=== PATIENT | female | born 2000 | race Asian ===

== ENCOUNTER 2020-06-07 23:22 | Inpatient (IN) ==
--- OUTSIDE RECORDS SUMMARY | 2020-06-07 23:25 | External Medical Summary | Continuity of Care Document ---
:2000 Author Name Kim Negrete, Provider Address Unavailable Unavailable , Care Team Providers Name Role Phone Unavailable Unavailable Unavailable Deedee Alexander M.D. Unavailable [email or web address] ESQUIVEL Unavailable Unavailable Unavailable Unavailable Unavailable Problems Allergic rhinitis (477.9) (J30.9) Allergic conjunctivitis (372.14) (H10.10) Idiopathic urticaria (708.1) (L50.1) Allergies and Adverse Reactions No Known Drug Allergies (Allergy) Medications [place] 24 Fe 1-20 MG-MCG(24) Oral Tablet , M.D. Refills: 0 Montelukast Sodium 10 MG Oral Tablet; TAKE 1 TABLET BY MOUTH EVERY DAY Caden Alexander Start: 29-Mar-2019 Quantity: 30 Refills: 11 Procedures Procedures not documented Immunizations Immunizations not documented Interventions Follow-ups/ReferralsFollow-up visit in 2 months; Done: 29 Mar 2019 Plan of Treatment Planned Observations Planned Goals not documented Results No Known Results Results not documented Encounters Appointment; Deedee Alexander M.D. 29-Mar-2019 14:20 Encounter Diagnosis: Problem not documented Appointment; Med [facility] Allergy, Testing Room 28-Mar-2019 10:30 Encounter Diagnosis: Problem not documented Appointment; Deedee Alexander M.D. 22-Mar-2019 15:00 Encounter Diagnosis: Problem not documented
[2020-06-07 23:57] LABS: Basophils # (auto) 0.03 K/uL (0-0.2); Basophils % (auto) 0.4 %; Eosinophils # (auto) 0.09 K/uL (0-0.5); Eosinophils % (auto) 1.1 %; Hematocrit (blood only) 45.4 % (37-47); Hemoglobin 15.8 g/dL (12.0-16.0); Immature Granulocytes # (auto) 0.02 K/uL (0.00-0.02); Immature Granulocytes % (auto) 0.3 %; Lymphocytes # (auto) 3.29 K/uL (1.2-3.4); Lymphocytes % (auto) 41.6 %; Mean Corpuscular Hgb Conc 34.8 g/dL (32-36); Mean Corpuscular Volume 89.2 fL (80-100); Mean Platelet Volume 9.3 fL (7.4-10.4); Monocytes # (auto) 0.38 K/uL (0.11-0.59); Monocytes % (auto) 4.8 %; Neutrophils # (auto) 4.09 K/uL (1.4-6.5); Neutrophils % (auto) 51.8 %; Platelet Count 346 K/uL (130-400); RDW Coefficient of Variation 12.6 % (11.5-14.5); RDW Standard Deviation 40.7 fL (36.4-46.3); Red Blood Count 5.09 M/uL (4.2-5.4)
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
[2020-06-08 00:27] LABS: Acetaminophen 25 ug/ml (10-30); Salicylate < 1.7 mg/dl (2.8-20)
[2020-06-08 01:02] LABS: Albumin Level 4.3 gm/dl (3.4-5.0); Bilirubin,Total 0.4 mg/dl (0.2-1); Calcium 8.7 mg/dl (8.5-10.1); Creatinine Clr Calc Pharmacy 69.8 ml/min; Est GFR (Non-African American) 84.5; Globulin 4.3 gm/dl (2.5-4.0); Thyroid Stimulating Hormone 0.742 uIu/ml (0.300-4.500); Total Protein 8.6 gm/dl (6.4-8.2)
[2020-06-08 03:06] LABS: Potassium 3.8 mmol/L (3.5-5.1)
[2020-06-08 03:10] LABS: Prothrombin Time 10.7 Seconds (9.0-12.0)
[2020-06-08 05:31] LABS: Appearance Urine Clear (Clear); Bilirubin Urine Negative (Negative); Blood Urine 3+ (Negative); Color Urine Yellow; Glucose Urine UA Negative (Negative); Ketones Urine 1+ (Negative); Leukocyte Esterase Urine Negative (Negative); Nitrite Urine Negative (Negative); Protein Urine Negative (Negative); Urobilinogen Urine Negative (Negative); pH Urine 6.5 (4.5-7.5)
[2020-06-08 05:45] LABS: Bacteria Urine Negative (Negative); Mucus Urine Present (None Prsent)
[2020-06-08 05:55] LABS: Amphetamines+Metham, Urine Neg (Neg); Barbiturates, Urine Neg (Neg); Benzodiazepine, Urine Neg (Neg); Cocaine, Urine Neg (Neg); MDMA (Ecstacy), Urine Neg (Neg); Methadone, Urine Neg (Neg); Opiate, Urine Neg (Neg); Phencyclidine, Urine Neg (Neg)
[2020-06-08 06:00] LABS: Pregnancy Test, Urine Negative (Negative)
[2020-06-08] MEDS ORDERED: ACETAMINOPHEN 325 MG TAB PO PRN (07:15)
[2020-06-08] MEDS ORDERED: ALUMINUM/MAGNESIUM SUSP 30 ML UDC PO PRN (07:15)
[2020-06-08] MEDS ORDERED: SODIUM CHLORIDE 0.65% NA SOLN 45 ML (OCEAN) PRN (07:15)
[2020-06-08] MEDS ORDERED: MAGNESIUM HYDROXIDE SUSP 30 ML UDC PO PRN (07:15)
[2020-06-08] MEDS ORDERED: BISMUTH SUBSALICYLATE PER ML OMNICELL CHARGE PO PRN (07:15)
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
[2020-06-08] MEDS: ORAL CONTRACEPTIVE: ORDER AWAITING ACTION SCH (19:38)
[2020-06-08] MEDS: MONTELUKAST SODIUM 10 MG TABLET PO SCH (20:59)
--- NOTE | 2020-06-08 23:44 | Electrocardiogram Report ---
Test Reason : Blood Pressure : / mmHG Vent. Rate : 112 BPM Atrial Rate : 112 BPM P-R Int : 124 ms QRS Dur : 074 ms QT Int : 356 ms P-R-T Axes : 060 096 037 degrees QTc Int : 485 ms Sinus tachycardia Possible Left atrial enlargement Rightward axis Nonspecific ST abnormality Abnormal ECG No previous ECGs available Confirmed by Jerry Lopes [id number]) on 06/08/2020 11:43:40 PM Referred By: REFERRED SELF Confirmed By:Jerry Lopes
[2020-06-09] MEDS: ORAL CONTRACEPTIVE: ORDER AWAITING ACTION SCH ×2 (01:50→15:48)
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
[2020-06-09] MEDS: MONTELUKAST SODIUM 10 MG TABLET PO SCH (22:27)
[2020-06-10] MEDS: ORAL CONTRACEPTIVE: ORDER AWAITING ACTION SCH ×3 (01:58→19:46)
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
[2020-06-10] MEDS: MONTELUKAST SODIUM 10 MG TABLET PO SCH (20:54)
[2020-06-10 20:58] LABS: Marijuana Quant, GCMS Urine 57 ng/mL (<5)
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
== END 2020-06-11 10:00 | disposition home or self-care (01) | DRG 918 ==
LOC: ED 23:22 → 3S 06-08 06:36 → SUATTDRO 06-08 06:36 → 3S 06-08 06:47